=== PATIENT | male | born 1960 | race Caucasian/White ===

== ENCOUNTER 2016-12-28 10:45 | Emergency (ER) | payer OTHER ==
[2016-12-28] MEDS ORDERED: KETOROLAC TROMETHAMINE 60 MG/2 ML VIAL IM ONE (11:09)
[2016-12-28] MEDS: KETOROLAC TROMETHAMINE 60 MG/2 ML VIAL IM ONE (11:12)
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
[2016-12-28 11:31] LABS: Hematocrit 40.3 % (42.0-52.0); Hemoglobin 14.7 gm/dL (13.5-18.0); Mean Cell Volume 90.4 fl (78-100); Mean Corpuscular Hgb Conc 36.5 g/dl (32-36); Mean Platelet Volume 10.5 fl (6.0-9.5); Platelet Count 211 K/mm3 (150-450); Red Blood Count 4.46 M/mm3 (4.7-6.0); Red Cell Distribution Width 12.4 % (11.5-14.0)
[2016-12-28 11:43] LABS: Albumin * 3.3 gm/dl (3.4-5.0); Anion Gap 12.4 mmol/L (6.8-13.8); BUN/Creatinine Ratio 15.6 (9.0-21.6); Bilirubin, Total 0.7 mg/dL (0.0-1.1); Ca. Corrected For Albumin 8.9 mg/dL (8.4-10.2); Calcium * 8.7 mg/dL (7.9-10.9); Carbon Dioxide 27.1 mmol/L (24-32.6); Potassium 3.5 mmol/L (3.4-4.6); Total Protein 5.8 gm/dL (6.2-8.2)
[2016-12-28 12:34] VITALS: BP 148/77
== END 2016-12-28 12:08 | disposition home or self-care (01) ==
LOC: ER 10:45
PROC: 2W3FX1Z Immobilization of Left Hand using Splint (ICD-10-PCS; principal; 2016-12-28)
DX: S52.572A Other intraarticular fracture of lower end of left radius, initial encounter for closed fracture (principal); W11.XXXA Fall on and from ladder, initial encounter; Y93.9 Activity, unspecified; Y92.007 Garden or yard of unspecified non-institutional (private) residence as the place of occurrence of the external cause; Y99.9 Unspecified external cause status

== ENCOUNTER 2016-12-28 13:52 | Day surgery (SDC) | payer OTHER ==
[~2016-12-28 13:52] MED LIST: RINGERS SOLUTION,LACTATED 1,000 ML IV PRN; ceFAZolin SODIUM 1 GM VIAL IV PRN
[2016-12-28] MEDS ORDERED: RINGERS SOLUTION,LACTATED 1,000 ML IV ONE ×2 (14:28→15:38)
--- NOTE | 2016-12-28 18:19 | OR ---
Operative Report - Dictated Report Narrative: Date: 12/28/2016 Surgeon: Stanley Vincent M.D. Junk Dealer: Geovani Ribeiro PA-C Preoperative diagnosis: Closed left Distal radius fracture 4 fragments with intra-articular extension Postoperative diagnosis: Closed left Distal radius fracture 4 fragments with intra-articular extension Operation: 1 - Open reduction internal fixation of left distal radius fracture 4 fragments with intra-articular extension 2 - Intraoperative interpretation of x-rays Retained implants: [employer] D rad left standard distal radius plate with associated screws Anesthesia: General plus regional Tourniquet time: 56 Minutes at 250 mmHg Estimated blood loss: Minimal Drains: None Specimen: None Complications: None Indications: Mr. Maria is a 56-year-old gentleman who injured the left arm after following off of a ladder. They were initially treated in the ER and splinted. Seen in the clinic and discuss the options for treatment. He wished to proceed with surgical treatment. The risks and benefits alternatives were discussed. Risks of , blood clots, bleeding, infection, nerve/tendon/blood vessel injury, malunion, nonunion, failure of implants, prominent implants, delayed tendon rupture, and need for additional procedures were discussed. Consent was obtained in the clinic. Procedure: After marking the correct extremity in the preoperative holding area, the patient was taken to the operating room. A timeout was performed. Anesthesia placed a regional block followed by general anesthetic. The arm was placed on an armboard with all bony prominences well-padded on the rest of the body. IV antibiotics consisting of Ancef were administered. A well-padded tourniquet was applied to the upper surgical arm. The arm was pre-scrubbed with chlorhexidine and prepped and draped in a standard sterile fashion. After exsanguinating the extremity and inflating the tourniquet to 250 mmHg, a longitudinal incision was made over the flexor carpi radialis. This was sharply dissected down through the skin to the tendon sheath. The tendon sheath was incised in line with the tendon. The tendon was mobilized radially, and the deep fascia was incised. The flexor pollicis longus was mobilized ulnarly exposing the pronator quadratus. Pronator quadratus was elevated off the radial aspect of the distal radius exposing the fracture. The fracture was noted to be transverse volarly with a longitudinal split. There is a dorsal intra-articular fragment and some comminution on the radial styloid. Using mini C-arm, the fracture was reduced and preliminarily pinned in the place through the radial styloid. Once it was felt that we adequately preliminarily stabilized the fracture, the plate was pinned in the place. This was visualized on AP and lateral views to be centered over the distal radius as well as not excessively distal. Once it was felt that the plate was in the correct position a series of distal locking and proximal nonlocking and locking screws were placed. Mini C-arm was utilized in order to confirm the length and placement of the screws. Once the wrist was stabilized, final images were obtained to ensure that the screws were not prominent dorsally nor into the joint space. The distal radial ulnar joint was then stressed in supination and pronation and neutral, and it was noted to be stable. It was felt that the fracture was adequately stabilized and the wounds were then thoroughly irrigated. The pronator quadratus was repaired over the plate using 4-0 Vicryl. The wounds were again thoroughly irrigated and tourniquet was deflated. Hemostasis was obtained and there was no excessive bleeding. Subcutaneous tissue was closed with 4-0 Vicryl and the skin with 4-0 Monocryl, benzoin, Steri-Strips. Sterile dressings consisting of Xeroform, 4 x 4, soft roll, and a well-padded plaster short arm splint was applied. All sponge, sharp , and instrument counts were correct prior to closing the wounds. The patient was awoken and transferred to the postanesthesia care unit in stable condition.
[2016-12-28] MEDS ORDERED: oxyCODONE HCL/ACETAMINOPHEN 1 TAB TABLET PO ONE ×2 (20:06→20:15)
[2016-12-28] MEDS ORDERED: oxyCODONE HCL/ACETAMINOPHEN 1 TAB TABLET ONE ×2 (20:09→20:28)
[2016-12-28 21:02] VITALS: BP 151/97
== END 2016-12-28 13:53 | disposition home or self-care (01) ==
LOC: AMB 13:52
PROVIDERS: ATTEND Orthopaedic Surgery
PROC: 0PSJ04Z Reposition Left Radius with Internal Fixation Device, Open Approach (ICD-10-PCS; principal; 2016-12-28 16:00)
DX: S52.572A Other intraarticular fracture of lower end of left radius, initial encounter for closed fracture (principal); I10 Essential (primary) hypertension; Z68.26 Body mass index [BMI] 26.0-26.9, adult; W11.XXXA Fall on and from ladder, initial encounter